=== PATIENT | male | born 1985 | race Caucasian/White ===

== ENCOUNTER → 2018-07-11 | Emergency (ER) | payer OTHER ==
[~2018-07-11] VITALS: Ht 172.7 cm; Wt 99.8 kg
[~2018-07-11] MED LIST: NAPROSYN500 MG PO
[2018-07-11 19:29] VITALS: BP 144/82
== END ==
LOC: M.ERS 19:24
DX: M77.01 Medial epicondylitis, right elbow (principal)

== ENCOUNTER 2019-08-16 22:12 | Emergency (ER) | payer OTHER ==
[~2019-08-16] VITALS: Ht 172.7 cm; Wt 99.8 kg
[2019-08-16 23:19] LABS: HEMATOCRIT 45.2 % (42.0-52.0); HEMOGLOBIN 15.5 gm/dL (14.0-18.0); MCH 29.5 pg (26.0-34.0); MCHC 34.4 g/dL (28.0-37.0); MCV 85.8 fL (80.0-100.0); MPV 9.5 fl. (7.2-11.1); RBC 5.27 mil/uL (4.50-6.00); WBC 8.6 thou/uL (4.0-11.0)
[2019-08-16 23:36] LABS: CALCIUM 9.2 mg/dL (8.5-10.1); CREATININE 1.1 mg/dL (0.6-1.3); POTASSIUM 3.7 mmol/L (3.5-5.1)
[2019-08-16 23:47] LABS: SALICYLATE < 2.8 mg/dL (2.8-20.0)
[2019-08-16 23:48] LABS: ACETAMINOPHEN < 2 ug/mL (10-30); ALCOHOL < 10 mg/dL (<10)
[2019-08-16 23:49] LABS: ALBUMIN 4.1 g/dL (3.4-5.0); TOTAL BILIRUBIN 0.5 mg/dL (<0.1-1.0); TOTAL PROTEIN 7.9 g/dL (6.4-8.2)
[2019-08-17 01:41] LABS: URINE BILIRUBIN NEGATIVE (Negative); URINE BLOOD 2+ (Negative); URINE CLARITY CLEAR; URINE COLOR YELLOW; URINE GLUCOSE-RANDOM NEGATIVE (Negative); URINE KETONES NEGATIVE (Negative); URINE LEUKOCYTES NEGATIVE (Negative); URINE NITRITE NEGATIVE (Negative); URINE PROTEIN NEGATIVE (Negative); URINE SPECIFIC GRAVITY >= 1.030 (1.005-1.030); URINE UROBILINOGEN 0.2 E.U./dl (0.2-1.0)
[2019-08-17 01:48] LABS: MUCUS 0-3 Light strn/LPF (None Seen); SQUAMOUS 0-3 Few /LPF (0-3); URINE WBC None Seen /HPF (0-5)
[2019-08-17 01:49] LABS: AMP/METHAMP Negative (Negative); BARBITURATES Negative (Negative); BENZODIAZEPINES Negative (Negative); CASTS None Seen /LPF (None Seen); COCAINE Negative (Negative); CRYSTALS None Seen /LPF (None Seen); METHADONE Negative (Negative); OPIATES Negative (Negative); PCP Negative (Negative); THC Negative (Negative)
[2019-08-17 04:15] VITALS: BP 144/85
== END 2019-08-17 04:15 | disposition home or self-care (01) ==
LOC: M.ERS 22:12
PROVIDERS: Personal Emergency Response Attendant
DX: F43.0 Acute stress reaction (principal)